=== PATIENT | male | born 1960 | race Caucasian/White ===

== ENCOUNTER 2021-07-27 11:03 | Inpatient (IN) ==
[2021-07-27] MEDS ORDERED: CeFAZolin Syr 2,000MG/20 ML 2,000 MG/20 ML SYRINGE IVPB ONE (11:26)
[2021-07-27] MEDS ORDERED: Protamine Sulfate 50 MG/5 ML VIAL IVP ONE (11:28)
[2021-07-27] MEDS ORDERED: Heparin 1,000 UNITS/500 mL 500 ML ONE ×3 (11:28→14:30)
[2021-07-27] MEDS ORDERED: Ringers Solution, Lactated 1,000 ML IVC SCH (11:30)
[2021-07-27] MEDS ORDERED: Lidocaine -MPF 2% 2 ML VIAL ONE ×2 (11:32→11:42)
[2021-07-27] MEDS ORDERED: *HR* Succinylcholine 200 MG/10 ML VIAL IVP ONE (11:32)
[2021-07-27] MEDS ORDERED: *HR* Propofol 200 MG/20 ML VIAL IVP ONE ×2 (11:32→12:20)
[2021-07-27] MEDS ORDERED: *HR* FentaNYL (PF) 100 MCG/2 ML VIAL ONE (11:32)
[2021-07-27] MEDS ORDERED: Lidocaine HCL 4 ML Topical Solution (Laryng-O-Jet Kit Sterile Pak) TP ONE (11:32)
[2021-07-27] MEDS ORDERED: *HR* Rocuronium Bromide 50 MG/5 ML VIAL ONE (11:32)
[2021-07-27] MEDS ORDERED: *HR* Remifentanil 1 MG VIAL IVP ONE ×2 (11:37→11:38)
[2021-07-27] MEDS ORDERED: Scopolamine Patch 1.5 MG PATCH.TD72 TD ONE (11:38)
[2021-07-27] MEDS ORDERED: *HR* Phenylephrine 10 MG/ML VIAL ONE (11:42)
[2021-07-27] MEDS ORDERED: EPHEDrine 50 MG/ML VIAL ONE (11:51)
[2021-07-27] MEDS ORDERED: *HR* Heparin 5,000 UNIT/ML VIAL ONE ×2 (11:58→14:51)
[2021-07-27] MEDS ORDERED: Ondansetron 4 MG/2 ML VIAL ONE (12:52)
[2021-07-27] MEDS ORDERED: Sugammadex Sodium 200 MG/2 ML VIAL IV ONE (12:54)
[2021-07-27] MEDS ORDERED: ceFAZolin 1,000 MG, Sodium Chloride IRRigation 1,000 ML IR ONE (13:15)
[2021-07-27] MEDS ORDERED: *HR* Labetalol 20 MG/4 ML SYRINGE IVP ONE (14:06)
[2021-07-27] MEDS ORDERED: Ondansetron 4 MG/2 ML VIAL IVP PRN (17:32)
[2021-07-27] MEDS ORDERED: Acetaminophen 325 MG TABLET PO PRN (17:32)
[2021-07-27] MEDS ORDERED: *HR* Labetalol 20 MG/4 ML SYRINGE IVP PRN (17:32)
[2021-07-27] MEDS ORDERED: *HR* HYDROcodone/Acet 5/325 mg TABLET PO PRN (17:32)
[2021-07-27] MEDS ORDERED: Naloxone 0.4 MG/ML INJ IVP PRN (17:32)
[2021-07-28] MEDS: CeFAZolin 2 GM/120 ML BAG IVPB SCH ×3 (00:53→14:57)
[2021-07-28 06:02] LABS: Basophils % 0.2 %; Eosinophils % 0.1 %; Hematocrit 37.1 % (37.5-50.1); Hemoglobin 12.3 g/dL (12.9-16.9); Immature Granulocytes % 0.5 % (0-4); Lymphocytes # 1.6 K/mcL (0.6-4.6); Lymphocytes % 12.3 %; Mean Corpuscular HGB Conc 33.2 g/dL (31.6-35.5); Mean Corpuscular Hemoglobin 30.2 pg (28.0-33.3); Mean Corpuscular Volume 91.2 fL (83.0-100.0); Mean Platelet Volume 9.2 fL (9.4-12.4); Monocytes # 0.7 K/mcL (0.0-1.3); Monocytes % 5.1 %; Neutrophils # 10.7 K/mcL (1.6-8.9); Platelet Count 313 K/mcL (140-400); Red Blood Count 4.07 M/mcL (4.19-5.50); Red Cell Distribution Width 13.2 % (11.5-14.5); Segmented Neutrophils % 81.8 %; White Blood Count 13.1 K/mcL (4.3-11.1)
[2021-07-28 06:25] LABS: BUN/Creatinine Ratio 21 (6-26); Blood Urea Nitrogen 21 mg/dL (8-23); Calcium 8.4 mg/dL (8.6-10.3); Carbon Dioxide 24 mEq/L (23-29); Chloride 105 mEq/L (98-107); Glucose 116 mg/dL (70-105); Osmolality,Calculated 286 (280-300); Potassium 4.1 mEq/L (3.5-5.1); Sodium 136 mEq/L (136-145); eGFR For African Americans > 60 (> 60); eGFR For Non-African Americans > 60 (> 60)
[2021-07-28] MEDS ORDERED: Aspirin Enteric Coated 81 MG Tablet PO SCH (09:00)
[2021-07-28 12:45] VITALS: BP 135/83; PULSE 72; TEMP 98.1; O2SAT 98
== END 2021-07-28 16:05 | disposition home or self-care (01) | DRG 39 ==
LOC: SAMDAY 11:03 → 2NNU 17:30
PROVIDERS: ADMIT Surgery Vascular Surgery; ATTEND Surgery Vascular Surgery

== ENCOUNTER 2021-09-02 11:04 | Inpatient (IN) ==
[2021-09-02] MEDS ORDERED: *HR* Phenylephrine 10 MG/ML VIAL ONE (11:20)
[2021-09-02] MEDS ORDERED: Heparin 1,000 UNITS/500 mL 500 ML ONE (11:21)
[2021-09-02] MEDS ORDERED: Lidocaine HCL 4 ML Topical Solution (Laryng-O-Jet Kit Sterile Pak) TP ONE (11:21)
[2021-09-02] MEDS ORDERED: *HR* Rocuronium Bromide 50 MG/5 ML VIAL ONE ×2 (11:22→14:08)
[2021-09-02] MEDS ORDERED: *HR* Succinylcholine 200 MG/10 ML VIAL IVP ONE (11:22)
[2021-09-02] MEDS ORDERED: Ondansetron 4 MG/2 ML VIAL ONE ×2 (11:22→13:47)
[2021-09-02] MEDS ORDERED: Sugammadex Sodium 200 MG/2 ML VIAL IV ONE ×2 (11:22→16:44)
[2021-09-02] MEDS ORDERED: *HR* Heparin 5,000 UNIT/ML VIAL ONE ×2 (11:22→15:52)
[2021-09-02] MEDS ORDERED: *HR* Midazolam HCl 2 MG/2 ML VIAL ONE (11:22)
[2021-09-02] MEDS ORDERED: Lidocaine -MPF 2% 2 ML VIAL ONE ×2 (11:22→13:47)
[2021-09-02] MEDS ORDERED: *HR* Propofol 200 MG/20 ML VIAL IVP ONE (11:23)
[2021-09-02] MEDS ORDERED: CeFAZolin Syr 2,000MG/20 ML 2,000 MG/20 ML SYRINGE IVPB ONE (11:50)
[2021-09-02] MEDS ORDERED: Ringers Solution, Lactated 1,000 ML IVC SCH (12:00)
[2021-09-02] MEDS ORDERED: Lidocaine 1% 20 ML MDV ONE (12:06)
[2021-09-02] MEDS ORDERED: Heparin 1,000 UNITS/500 mL 1,000 ML ONE (12:06)
[2021-09-02] MEDS ORDERED: Protamine Sulfate 50 MG/5 ML VIAL IVP ONE (12:06)
[2021-09-02] MEDS ORDERED: Ondansetron 4 MG/2 ML VIAL IVP PRN ×2 (12:41→18:48)
[2021-09-02] MEDS ORDERED: *HR* OxyCODONE Immed Rel 5 MG TABLET PO PRN ×2 (12:41→18:48)
[2021-09-02] MEDS ORDERED: Morphine Sulfate 2 MG/ML SYRINGE IVP PRN (12:41)
[2021-09-02] MEDS ORDERED: ceFAZolin 1,000 MG, Sodium Chloride IRRigation 1,000 ML IR ONE (12:45)
[2021-09-02] MEDS ORDERED: *HR* Remifentanil 1 MG VIAL IVP ONE ×2 (12:47→14:50)
[2021-09-02] MEDS ORDERED: Scopolamine Patch 1.5 MG PATCH.TD72 ONE (12:51)
[2021-09-02] MEDS ORDERED: NiCARdipine 2.5 MG/10 ML Syringe IVPB ONE (13:20)
[2021-09-02] MEDS ORDERED: Scopolamine Patch 1.5 MG PATCH.TD72 TD ONE (13:45)
[2021-09-02] MEDS ORDERED: EPHEDrine 50 MG/ML VIAL ONE (13:55)
[2021-09-02] MEDS ORDERED: Acetaminophen IV 1,000 MG/100 ML BAG IVPB ONE ×2 (14:01→14:02)
[2021-09-02] MEDS ORDERED: *HR* Labetalol 20 MG/4 ML SYRINGE IVP ONE (16:41)
[2021-09-02] MEDS ORDERED: *HR* Labetalol 20 MG/4 ML SYRINGE IVP PRN (18:48)
[2021-09-02] MEDS ORDERED: Acetaminophen 325 MG TABLET PO PRN ×2 (18:48→20:12)
[2021-09-02] MEDS ORDERED: *HR* HYDROcodone/Acet 5/325 mg TABLET PO PRN (18:48)
[2021-09-02] MEDS ORDERED: Naloxone 0.4 MG/ML INJ IVP PRN (18:48)
[2021-09-02] MEDS ORDERED: 0.9 % Sodium Chloride 1,000 ML ONE (19:15)
[2021-09-02] MEDS ORDERED: Isovue-370 500 ML BOTTLE IVP ONE (19:39)
[2021-09-02 20:12] LABS: ABG Base Excess -2 mEq/L (-2 to 3); ABG HCO3 23 mEq/L (21-27); ABG Oxygen Saturation 99 % (95-98); ABG PCO2 36 mmHg (35-45); ABG PO2 124 mmHg (85-104); ABG TCO2 24 mEq/L (20-26)
[2021-09-02 20:12] LABS: Basophils % 0.1 %; Hematocrit 40.4 % (37.5-50.1); Hemoglobin 13.5 g/dL (12.9-16.9); Immature Granulocytes % 0.5 % (0-4); Lymphocytes # 1.1 K/mcL (0.6-4.6); Lymphocytes % 8.2 %; Mean Corpuscular HGB Conc 33.4 g/dL (31.6-35.5); Mean Corpuscular Hemoglobin 29.6 pg (28.0-33.3); Mean Corpuscular Volume 88.6 fL (83.0-100.0); Monocytes # 0.1 K/mcL (0.0-1.3); Monocytes % 0.9 %; Neutrophils # 12.3 K/mcL (1.6-8.9); Platelet Count 202 K/mcL (140-400); Red Blood Count 4.56 M/mcL (4.19-5.50); Red Cell Distribution Width 13.6 % (11.5-14.5); Segmented Neutrophils % 90.3 %; White Blood Count 13.6 K/mcL (4.3-11.1)
[2021-09-02 20:18] LABS: Prothrombin Time 11.6 Seconds (9.4-12.1)
[2021-09-02 20:20] LABS: Activated Partial Thrombo Time 41.3 Seconds (26.0-36.0)
[2021-09-02] MEDS ORDERED: D5% in Water 1,000 ML IVC PRN (20:25)
[2021-09-02] MEDS ORDERED: *HR* Dextrose 50 % in Water (Syg) 50 ML SYRINGE IVP PRN (20:25)
[2021-09-02] MEDS ORDERED: Dextrose Gel 15 GM/37.5 ML TUBE PO PRN ×2 (20:25)
[2021-09-02 20:27] LABS: Alanine Aminotransferase 20 Units/L (7-52); Albumin 3.8 g/dL (3.5-5.7); Albumin/Globulin Ratio 1.8 (1.1-2.2); Alkaline Phosphatase 104 Units/L (34-104); Aspartate Amino Transferase 17 Units/L (13-39); BUN/Creatinine Ratio 16 (6-26); Bilirubin,Total 0.5 mg/dL (0.3-1.0); Blood Urea Nitrogen 16 mg/dL (8-23); Calcium 8.5 mg/dL (8.6-10.3); Carbon Dioxide 23 mEq/L (23-29); Chloride 105 mEq/L (98-107); Creatine Kinase 59 Units/L (30-223); Globulin 2.1 g/dL (2.4-3.5); Glucose 127 mg/dL (70-105); Magnesium 1.9 mg/dL (1.6-2.6); Osmolality,Calculated 283 (280-300); Potassium 3.9 mEq/L (3.5-5.1); Sodium 135 mEq/L (136-145); Total Protein 5.9 g/dL (6.4-8.9); eGFR For African Americans > 60 (> 60); eGFR For Non-African Americans > 60 (> 60)
[2021-09-02 20:47] LABS: Prolactin 3.98 ng/mL (3.00-14.70)
[2021-09-02] MEDS: Nicotine 21 MG PATCH.TD24 TD SCH (22:09)
[2021-09-02] MEDS ORDERED: *HR* Labetalol 20 MG/4 ML SYRINGE IVP STA ×2 (22:10→22:12)
[2021-09-02] MEDS: niCARdipine 20 MG/200 ML MLS IVC SCH (22:10)
[2021-09-02] MEDS: *HR* Labetalol 20 MG/4 ML SYRINGE IVP STA ×2 (22:17→22:26)
[2021-09-02] MEDS: CeFAZolin 2 GM/120 ML BAG IVPB SCH (22:29)
[2021-09-03] MEDS ORDERED: Perflutren Lipid Microsphere 1.3 ML in 0.9 % Sodium Chloride 8.7 ML IVP PRN (02:45)
[2021-09-03 05:30] LABS: Basophils % 0.1 %; Hematocrit 40.6 % (37.5-50.1); Hemoglobin 13.3 g/dL (12.9-16.9); Immature Granulocytes % 0.3 % (0-4); Lymphocytes # 1.4 K/mcL (0.6-4.6); Lymphocytes % 10.5 %; Mean Corpuscular HGB Conc 32.8 g/dL (31.6-35.5); Mean Corpuscular Hemoglobin 29.2 pg (28.0-33.3); Mean Platelet Volume 9.1 fL (9.4-12.4); Monocytes # 0.7 K/mcL (0.0-1.3); Monocytes % 5.1 %; Neutrophils # 11.5 K/mcL (1.6-8.9); Platelet Count 227 K/mcL (140-400); Red Blood Count 4.56 M/mcL (4.19-5.50); Red Cell Distribution Width 13.7 % (11.5-14.5); White Blood Count 13.7 K/mcL (4.3-11.1)
[2021-09-03] MEDS: CeFAZolin 2 GM/120 ML BAG IVPB SCH ×2 (05:34→13:45)
[2021-09-03 05:51] LABS: INR 1.1; Prothrombin Time 11.7 Seconds (9.4-12.1)
[2021-09-03] MEDS: niCARdipine 20 MG/200 ML MLS IVC SCH ×3 (06:07→10:37)
[2021-09-03 06:13] LABS: Alanine Aminotransferase 18 Units/L (7-52); Albumin/Globulin Ratio 1.9 (1.1-2.2); Alkaline Phosphatase 105 Units/L (34-104); Aspartate Amino Transferase 15 Units/L (13-39); BUN/Creatinine Ratio 17 (6-26); Bilirubin,Total 0.5 mg/dL (0.3-1.0); Blood Urea Nitrogen 17 mg/dL (8-23); Calcium 8.9 mg/dL (8.6-10.3); Carbon Dioxide 24 mEq/L (23-29); Chloride 104 mEq/L (98-107); Chol/HDL Ratio 2.9 (0-4.9); Cholesterol 127 mg/dL (< 200); Globulin 2.1 g/dL (2.4-3.5); Glucose 132 mg/dL (70-105); HDL Cholesterol 44 mg/dL (40-59); Osmolality,Calculated 283 (280-300); Potassium 4.2 mEq/L (3.5-5.1); Sodium 135 mEq/L (136-145); Total Protein 6.1 g/dL (6.4-8.9); Troponin I < 0.03 ng/mL (< 0.04); eGFR For African Americans > 60 (> 60); eGFR For Non-African Americans > 60 (> 60)
[2021-09-03 06:50] LABS: LDL Cholesterol,Calculated 70 mg/dL (< 100); Triglycerides 66 mg/dL (< 150)
[2021-09-03 07:20] LABS: Estimated Average Glucose 117 mg/dl; Hemoglobin A1C 5.7 %
[2021-09-03] MEDS: Nicotine 21 MG PATCH.TD24 TD SCH (08:30)
[2021-09-03] MEDS ORDERED: Aspirin Enteric Coated 81 MG Tablet PO SCH (09:00)
[2021-09-03 11:59] LABS: Estimated Average Glucose 117 mg/dl; Hemoglobin A1C 5.7 %
[2021-09-03 14:47] LABS: Folate 8.8 ng/mL (3.0-16.0)
[2021-09-03 16:55] VITALS: BP 130/90; PULSE 93; TEMP 97.6; O2SAT 97
== END 2021-09-03 18:15 | disposition home or self-care (01) | DRG 37 ==
LOC: SAMDAY 11:04 → 2NNU 18:43
PROVIDERS: ADMIT Surgery Vascular Surgery; ATTEND Surgery Vascular Surgery